=== PATIENT | female | born 1960 | race African-American/Black ===

== ENCOUNTER → 2020-03-18 | Outpatient (CLI) | payer OTHER ==
[2014-06-03 15:08] VITALS: BP 199/96
--- NOTE | 2020-03-18 16:40 | RAD ---
EXAM: Lumbar spine, 2 views. HISTORY: Disability determination. COMPARISON: None. FINDINGS: 2 views of the lumbar spine are obtained. There is grade 1 anterolisthesis of L4 on L5 and L5 and S1, measuring 3 mm. There is multilevel endplate remodeling, primarily at L2-L3. There is adva nced facet arthropathy at the mid lower lumbar levels. IMPRESSION: 1. Multilevel degenerative change, described above. 2. No acute osseous finding. Electronically signed by: Mónica Paul MD (03/18/2020 4:38 PM) [id number]
--- NOTE | 2020-03-18 17:17 | RAD ---
EXAM: LEFT ANKLE 2 VIEWS. HISTORY: Left ankle pain, fracture fixation COMPARISON: None. FINDINGS: Two views of the left ankle are obtained. There are changes of internal fixation of chronic healed medial and malleolar fractures. The lateral malleolar fracture is fixed by lateral plate and screws. The medial malleolar fracture is fixed by 2 interfragmentary screws. No acute fractures are seen. An ossicle along the dorsum of the talar neck m ay reflect a chronic anterior capsular avulsion versus a 3 mm loose body within the anterior joint sp nabil. Alignment is normal. There are small osteophytes along the margins of the mortise medially and l aterally. IMPRESSION: 1. Mild osteoarthritis of the ankle mortise. Possible 3 mm loose body within the anterior joint space versus a chronic avulsion fragment. 2. Chronic healed internally fixed medial and lateral malleolar fractures. Electronically signed by: Anthony Molina MD (03/18/2020 5:15 PM) [id number]
== END ==
LOC: RAD 10:39
PROVIDERS: ATTEND Surgery
DX: M47.816 Spondylosis without myelopathy or radiculopathy, lumbar region (principal); M43.16 Spondylolisthesis, lumbar region; M19.072 Primary osteoarthritis, left ankle and foot; M25.572 Pain in left ankle and joints of left foot
CPT/HCPCS: 72100; 73600